=== PATIENT | male | born 1970 | race Caucasian/White ===

== ENCOUNTER → 2020-12-02 | Outpatient (CLI) | payer BC | LOC: CARD 15:00 | PROVIDERS: ATTEND Internal Medicine Cardiovascular Disease | DX: I08.0 Rheumatic disorders of both mitral and aortic valves (principal); R94.31 Abnormal electrocardiogram [ECG] [EKG] | CPT/HCPCS: 93306 ==

== ENCOUNTER → 2020-12-08 | Outpatient (CLI) | payer BC ==
[~2020-12-08] MED LIST: REGADENOSON 0.4 MG/5 ML SYR (LEXISCAN) IV ONE
[2020-12-08] MEDS: CATHETER FLUSH 10 ML SYR IV PRN ×2 (07:33→09:10)
[2020-12-08 08:58] VITALS: BP 135/81
--- NOTE | 2020-12-08 16:10 | Cardiology Stress Test Report ---
Stress Test Report Date of Procedure/Referring: Date of Procedure: Dec 08, 2020 PCP Franklyn Keyes Jr, MD Admitting Physician Alyse Keita Indications: Abnormal ECG. Baseline Heart Rate: 65 Baseline Blood Pressure: Blood Pressure Systolic: 135 Blood Pressure Diastolic: 81 Baseline Vitals Vital Signs Date Time Temp Pulse Resp B/P (MAP) Pulse Ox O2 Delivery O2 Flow Rate FiO2 12/08/20 08:58 93 16 135/81 (99) 95 Room Air Baseline EKG: Baseline EKG: Sinus rhythm with nonspecific intraventricular conduction delay. Summary After explaining the procedure to the patient, he signed a consent and then brought to the stress nuclear laboratory. STRESS TEST PROCEDURE: This was initially intended to be an exercise nuclear stress test but the patient could not obtain his target heart rate on the treadmill. Therefore, he was administered 0.4 mg of intravenous Lexiscan. He was walked for approximately 1 additional minute. The resting heart rate was 65 bpm and the peak heart rate was 111 bpm. The resting blood pressure was 155/79 mmHg and the minimum blood pressure was 139/80 mmHg. This represents normal heart rate and blood pressure response to Lexiscan. The test was stopped due to the protocol. There was no chest discomfort during the test. There were isolated premature ventricular complexes during the test. There was no significant stress induced electrocardiogram changes. NUCLEAR PROCEDURE: The patient was administered 10.8 mCi of intravenous technetium 99m Myoview at rest for the rest images. The patient was subsequently administered 29.4 mCi of intravenous technetium 99 M Myoview at peak stress for the stress images. Following a short wait after each injection, imaging was obtained. The images were subsequently processed and reformatted in the usual views. Gated imaging was obtained. There was a mild degree of gastrointestinal attenuation artifact noted. NUCLEAR RESULTS: There was normal myocardial perfusion in all segments without evidence of infarction or ischemia. There was normal left ventricular chamber size with an end-diastolic volume of 102 mL and an end-systolic volume of 54 mL. There was no evidence of change at the ischemic dilatation. The TID ratio was 1.1. There was mild global hypokinesis with a calculated ejection fraction of 47%. IMPRESSION: 1. Normal heart rate and blood pressure response to Lexiscan. 2. There was no chest discomfort during the test. 3. There were isolated premature ventricular complexes during the test. 4. There were no stress-induced electrocardiogram changes. 5. There was normal myocardial perfusion in all segments without evidence of infarction or ischemia. 6. There was mild global hypokinesis with a calculated ejection fraction of 47%. FRANKLYN KEYES JR, MD Dec 08, 2020 16:10
== END ==
LOC: CARD 07:30
PROVIDERS: ATTEND Internal Medicine Cardiovascular Disease
DX: R94.31 Abnormal electrocardiogram [ECG] [EKG] (principal)
CPT/HCPCS: 78452; 93017; A9502

== ENCOUNTER → 2021-07-28 | Outpatient (CLI) | payer BC | LOC: LABNPT 06:29 | PROVIDERS: ATTEND Nurse Practitioner Family | DX: Z53.9 Procedure and treatment not carried out, unspecified reason (principal) ==

== ENCOUNTER → 2022-09-17 | Outpatient (CLI) | payer BC ==
--- NOTE | 2022-09-17 17:05 | Diagnostic Imaging Report ---
EXAMINATION: CT chest without contrast (lung screening). TECHNIQUE: Multiple contiguous axial images were obtained through the chest without the use of intravenous contrast according to lung cancer screening protocol. All CT scans use one or more of the following dose optimizing techniques: automated exposure control, MA and/or KvP adjustment based on patient size and exam type or iterative reconstruction. HISTORY: 63 pack year history of smoking. COMPARISON: None available. FINDINGS: Thyroid: The thyroid is normal. Mediastinum: Heart size is normal without significant pericardial effusion. The aorta is normal in caliber. No suspicious lymphadenopathy. Lungs and airways: The lungs are clear without consolidation, pleural effusion, or pneumothorax. No suspicious pulmonary nodule. The airways are normal. Upper abdomen: The subphrenic structures are normal. Musculoskeletal: Degenerative changes of the spine without suspicious osseous lesion or compression fracture. IMPRESSION: 1. No suspicious pulmonary nodules. Recommend continued annual low-dose CT screening. LUNG-RADS CATEGORY: 1 MODIFIER: None Dictated by: Dictated on workstation # [id number]
== END ==
LOC: RAD 15:45
PROVIDERS: ATTEND Family Medicine
DX: Z12.2 Encounter for screening for malignant neoplasm of respiratory organs (principal); F17.210 Nicotine dependence, cigarettes, uncomplicated
CPT/HCPCS: 71271

== ENCOUNTER 2023-01-26 15:16 | Emergency (ER) | payer BC ==
[~2023-01-26] VITALS: Ht 182.3 cm; Wt 96.2 kg
--- NOTE | 2023-01-26 15:33 | ED Neurological Problem ---
General Chief Complaint: Neuro-Stroke Like Symptoms Stated Complaint: POSSIBLE STROKE Nursing Triage Note: Patient transferred to this ER from [place] [facility] for CTA d/t stroke type symptoms this am. Patient states he became dizzy and "off" balance around noon today. Patient states he had a headache in the back of his head at base of neck. Patient states he had blurry vision during episode. Patient denies any weakness to either side of his body. Patient denies any chest pain or shortness of breath. Patient states his mouth did go numb during episode, but state states that has improved. Patient states he was outside mowing the yard prior to this episode. Source: patient, EMS Exam Limitations: no limitations History of Present Illness Date Seen by Provider: Jan 26, 2023 Time Seen by Provider: 15:16 Initial Comments 52-year-old male presents to the emergency department as an ER to ER transfer from [facility]. Nurse practitioner had called me from [place] requesting transfer at the request of stroke neurology from . On arrival the patient tells me that starting about noon he developed some dizziness described as the room spinning, broke into a cold sweat. His is at bedside and tells me he had some left-sided facial droop and difficulty word finding during that time as well. This has happened to him in the past but it has always been very brief in nature. Today it lasted for quite some time so he presented to the emergency room there. A CT scan of the head was negative. Per the nurse practitioner's report stroke neurology recommended tPA and then transfer for a CTA of the head and neck to rule out a large vessel occlusion. They apparently did not have this capability at [facility] so they transferred him for CT angiography. On arrival it turns out the patient did not receive tPA, unknown circumstance behind that. He does tell me that he feels 100% back to normal now. His confirms that he is no longer having difficulty speaking or having any facial droop. He is no longer nauseated. All other systems reviewed and negative except documented per HPI. Voice recognition software was used to help create this chart Allergies and Home Medications Allergies Coded Allergies: No Allergy Information Available (Unverified , 12/08/20) Patient Home Medication List Home Medication List Reviewed: Yes Review of Systems Review of Systems Constitutional: see HPI Past [id number] Hx Patient Social History Tobacco Use?: No Use of E-Cig and/or Vaping dev: No Substance use?: No Alcohol Use?: No Physical Exam Vital Signs Vital Signs - First Documented 01/26/23 15:20 Temp 36.5 Pulse 74 Resp 20 B/P (MAP) 144/73 (96) O2 Delivery Room Air Capillary Refill : Height, Weight, BMI Height: '" Weight: lbs. oz. kg; 28.00 BMI Method: General Appearance: WD/WN, no apparent distress HEENT: normal ENT inspection, pharynx normal Neck: non-tender, supple, normal inspection Respiratory: chest non-tender, lungs clear, normal breath sounds, no respiratory distress, no accessory muscle use Cardiovascular: regular rate, rhythm, no murmur Gastrointestinal: normal bowel sounds, non tender, soft, no organomegaly Extremities: normal range of motion, non-tender, normal inspection, no pedal edema, no calf tenderness, normal capillary refill Neurologic/Psychiatric: oiler bander II-XII nml as tested, no motor/sensory deficits, alert, normal mood/affect, oriented x 3 Skin: normal color, warm/dry Progress/Results/Core Measures Results/Orders My Orders Orders - NANCYAMARILIS SHEPHERD DO Vital Signs Stroke Patient Q15M (01/26/23 15:25) Monitor-Rhythm Ecg Trace Only (01/26/23 15:25) Dysphagia Screening Tool Q10MX1 (01/26/23 15:25) Ct Angio Head/Neck (01/26/23 15:25) Iohexol Injection (Omnipaque 350 Mg/Ml 1 (01/26/23 15:45) Received Contrast (Hold Metformin- Contr (01/26/23 15:45) Ns (Ivpb) 100 Ml (Sodium Chloride 0.9% 1 (01/26/23 15:45) Medications Given in ED Current Medications Medications Dose Ordered Sig/Megan Route Start Time Stop Time Status Last Admin Dose Admin Iohexol 75 ml ONCE ONCE IV 01/26/23 15:45 01/26/23 15:46 DC 01/26/23 16:14 75 ML Sodium Chloride 100 ml ONCE ONCE IV 01/26/23 15:45 01/26/23 15:46 DC 01/26/23 16:14 100 ML Vital Signs/I&O 01/26/23 15:20 Temp 36.5 Pulse 74 Resp 20 B/P (MAP) 144/73 (96) O2 Delivery Room Air Blood Pressure Mean: 96 Departure Communication (Admissions) I discussed symptoms and risk of the patient at length and he is adamant that he does not want to stay in the hospital. I did advise him that risks include permanent disability and even and he states understanding. CT angiography is negative. It is unknown why he did receive tPA prior to transfer however he was symptom-free at the time of arrival here and did not receive for me. He is alert and oriented and has a capacity to make his own medical decisions. He signed out AGAINST MEDICAL ADVICE. Impression Primary Impression: Transient neurologic deficit Disposition: AGAINST MEDICAL ADVICE Condition: Stable Departure-Patient Inst. Referrals: SOLOMON CHUNG (PCP/Family) Primary Care Physician Patient Instructions: Stroke (DC) Add. Discharge Instructions: As discussed I recommended admission to the hospital but you have declined. Please note that the risks include permanent disability and could even include . Should you develop any concerns or change your mind about admission please return to the emergency department immediately. Follow-up your primary doctor in the next 48 hours. All discharge instructions reviewed with patient and/or family. Voiced understanding. AMARILIS CRUZ DO Jan 26, 2023 15:33
[2023-01-26] MEDS ORDERED: IOHEXOL 350 MG/ML 100 ML (OMNIPAQUE 350) VIAL IV ONE (15:45)
[2023-01-26] MEDS ORDERED: HOLD METFORMIN - RECEIVED CONTRAST 20 ML VIAL IV SCH (15:45)
[2023-01-26] MEDS ORDERED: NS 100 ML (IVPB) BAG IV ONE (15:45)
--- NOTE | 2023-01-26 16:35 | Diagnostic Imaging Report ---
PROCEDURE: CT angiography of the head and CT angiography of the neck with and without contrast. TECHNIQUE: Contiguous noncontrast images were obtained from the skull base through the vertex. After intravenous contrast administration, helical CT angiography of the neck was performed. Source data was reformatted into 3D MIP projections. Delayed post contrast acquisition was also obtained. Auto Exposure Controls were utilized during the CT exam to meet ALARA standards for radiation dose reduction. INDICATION: Dizziness, loss of balance, head pain posteriorly into the base of the neck, episode of blurred vision. CT HEAD: Precontrast and delayed postcontrast enhanced head CT showed no edema, hydrocephalus, mass or abnormal contrast enhancement. There was no hemorrhage. There is enhancement of the major dural venous sinuses. CT ANGIOGRAM NECK: Aortic arch patent. There is conventional branching of the great vessels. The left vertebral artery dominant, the right small but is not pathologic. There are mixed soft and hard plaques and intimal thickening at the carotid bulbs and bifurcations extending into the proximal ICAs this is somewhat greater right than left. On the right results in about 30-40% stenosis and on the left less than 30% stenosis. No cervical arterial dissection or segmental occlusion. CT ANGIOGRAM HEAD: The small caliber intradural right vertebral terminates as the PICA as a variant. The intradural left vertebral and the basilar are widely patent. The bilateral compliance representative dealer patent. There is mild non-stenosing calcified plaques of the cavernous segments of the intracranial carotids. The anterior cerebral arterial segments are widely patent and unremarkable. The bilateral middle cerebral arterial segments and their primary branches are widely patent. No aneurysm branch occlusion or vascular malformation. IMPRESSION: 1. No acute abnormality at CT angiographic study neck and head. 2. Cervical and intracranial atherosclerotic disease without hemodynamically significant stenosis. Dictated by: Dictated on workstation # [id number]
[2023-01-26 16:53] VITALS: BP 144/73
== END 2023-01-26 16:55 | disposition left against medical advice (07) ==
LOC: EDUNIT# 15:16 → ER 15:18
DX: R29.818 Other symptoms and signs involving the nervous system (principal); R42 Dizziness and giddiness; R29.810 Facial weakness
CPT/HCPCS: 70496; 70498; 93041